=== PATIENT | male | born 1995 | race Caucasian/White ===

== ENCOUNTER 2017-10-26 21:24 | Emergency (ER) | payer OTHER ==
[2017-10-26 21:37] VITALS: BP 123/60; PULSE 103; RESP 20; TEMP 98.6; O2SAT 100
--- NOTE | 2017-10-26 22:13 | PD ---
HPI Chief Complaint: Cold / Flu Symptoms Time Seen by Provider: 22:04 Travel History International Travel<30 days: No Contact w/Intl Traveler<30days: No Traveled to known affect area: No History of Present Illness HPI Patient has had vomiting and diarrhea all day since 9 AM this morning he denies fever denies congestion or flulike symptoms but he has body aches nausea vomiting and a little bit of pain in the abdomen where he has a small defect periumbilical hernia that is known since childhood. He is nontoxic-appearing he has not been able to keep anything down he says the only thing he tried to eat were Gatorade and cheetos . Mother is bedside patient does not appear toxic has not seen another doctor for this again only tried Gatorade and Cheetos for his symptoms PFSH Past Medical History Medical History: Denies Significant Hx Diminished Hearing: No Immunizations Current: Yes (UTD) Past Surgical History Other Surgery: Yes (FRACTURED NOSE AGE 5) Social History Alcohol Use: Yes (OCCATIONALLY) Tobacco Use: No Substance Use: No Allergies-Medications (Allergen,Severity, Reaction): Coded Allergies: metoclopramide (Verified Allergy, Severe, AGITATION, 10/26/17) oseltamivir (Verified Allergy, Severe, Nausea/Vomiting, 10/26/17) Reported Meds & Prescriptions Reported Meds & Active Scripts Active Pepcid (Famotidine) 20 Mg Tab 20 Mg PO BID Zofran Odt (Ondansetron Odt) 4 Mg Tab 4 Mg SL Q6HR PRN Review of Systems Except as stated in HPI: all other systems reviewed are Neg Gastrointestinal: Positive: Nausea, Vomiting, Diarrhea, Abdominal Pain Physical Exam Narrative GENERAL: Nontoxic-appearing SKIN: Warm and dry. HEAD: Atraumatic. Normocephalic. EYES: Pupils equal and round. No scleral icterus. No injection or drainage. ENT: No nasal bleeding or discharge. Mucous membranes pink and moist. NECK: Trachea midline. No JVD. CARDIOVASCULAR: Regular rate and rhythm. RESPIRATORY: No accessory muscle use. Clear to auscultation. Breath sounds equal bilaterally. GASTROINTESTINAL: Abdomen soft, patient has a slight defect right above the umbilicus at 2:00 on the umbilicus no bowel is protruding and I do not feel a hard knot , if I push into the defect in the abdominal wall non-tender, nondistended. Hepatic and splenic margins not palpable. MUSCULOSKELETAL: Extremities without clubbing, cyanosis, or edema. No obvious deformities. NEUROLOGICAL: Awake and alert. No obvious cranial nerve deficits. Motor grossly within normal limits. Five out of 5 muscle strength in the arms and legs. Normal speech. PSYCHIATRIC: Appropriate mood and affect; insight and judgment normal. Data Data Last Documented VS Vital Signs Date Time Temp Pulse Resp B/P (MAP) Pulse Ox O2 Delivery O2 Flow Rate FiO2 10/26/17 23:44 88 16 136/68 (90) 98 10/26/17 23:01 Room Air 10/26/17 21:37 98.6 Orders Orders Complete Blood Count With Diff (10/26/17 22:10) Comprehensive Metabolic Panel (10/26/17 22:10) Lipase (10/26/17 22:10) Famotidine Inj (Pepcid Inj) (10/26/17 22:15) Ondansetron Inj (Zofran Inj) (10/26/17 22:15) Sodium Chlor 0.9% 1000 Ml Inj (Ns 1000 M (10/26/17 22:15) Labs Laboratory Tests Test 10/26/17 22:15 White Blood Count 12.4 TH/MM3 Red Blood Count 5.13 MIL/MM3 Hemoglobin 15.7 GM/DL Hematocrit 46.0 % Mean Corpuscular Volume 89.8 FL Mean Corpuscular Hemoglobin 30.6 PG Mean Corpuscular Hemoglobin Concent 34.2 % Red Cell Distribution Width 12.5 % Platelet Count 277 TH/MM3 Mean Platelet Volume 8.0 FL Neutrophils (%) (Auto) 87.9 % Lymphocytes (%) (Auto) 4.9 % Monocytes (%) (Auto) 5.5 % Eosinophils (%) (Auto) 0.2 % Basophils (%) (Auto) 1.5 % Neutrophils # (Auto) 10.9 TH/MM3 Lymphocytes # (Auto) 0.6 TH/MM3 Monocytes # (Auto) 0.7 TH/MM3 Eosinophils # (Auto) 0.0 TH/MM3 Basophils # (Auto) 0.2 TH/MM3 CBC Comment DIFF FINAL Differential Comment Blood Urea Nitrogen 17 MG/DL Creatinine 1.20 MG/DL Random Glucose 101 MG/DL Total Protein 7.8 GM/DL Albumin 4.1 GM/DL Calcium Level 8.9 MG/DL Alkaline Phosphatase 90 U/L Aspartate Amino Transf (AST/SGOT) 20 U/L Alanine Aminotransferase (ALT/SGPT) 28 U/L Total Bilirubin 1.7 MG/DL Sodium Level 136 MEQ/L Potassium Level 4.1 MEQ/L Chloride Level 102 MEQ/L Carbon Dioxide Level 26.6 MEQ/L Anion Gap 7 MEQ/L Estimat Glomerular Filtration Rate 76 ML/MIN Lipase 99 U/L MDM Medical Decision Making Medical Screen Exam Complete: Yes Emergency Medical Condition: Yes Differential Diagnosis Differential diagnosis includes gastroenteritis versus cholecystitis versus pancreatitis versus viral gastroenteritis Narrative Course Fluids Zofran Pepcid patient feels much better I do a bedside [id number] ultrasound that shows no signs of gallstones no signs of common bile duct dilation no signs of wall thickening and there is no pericholecystic fluid liter fluid patient feels much better discharged home with Zofran Pepcid p.o. and follow with outpatient Procedures Procedure Narrative POC bedside U/s no GB disease no stones no pericholic fluid CBD normal Diagnosis Primary Impression: Gastroenteritis and colitis, viral Patient Instructions: Gastroenteritis (ED), General Instructions Scripts Famotidine (Pepcid) 20 Mg Tab 20 MG PO BID, #20 TAB 0 Refills Prov: Abel Brandon MD 10/26/17 Ondansetron Odt (Zofran Odt) 4 Mg Tab 4 MG SL Q6HR Y for Nausea/Vomiting, #15 TAB 0 Refills Prov: Abel Brandon MD 10/26/17 Disposition: 01 DISCHARGE HOME Condition: Good Abel Brandon MD Oct 26, 2017 22:13
[2017-10-26] MEDS ORDERED: ONDANSETRON HCL 4 MG/2 ML VIAL IV PUSH ONE (22:15)
[2017-10-26] MEDS ORDERED: SODIUM CHLOR 0.9% 1000 ML INJ 1,000 ML IV ONE (22:15)
[2017-10-26] MEDS ORDERED: FAMOTIDINE 20 MG/2 ML VIAL IV PUSH SCH (22:15)
[2017-10-26 22:36] LABS: AUTOMATED NEUTROPHIL # 10.9 TH/MM3 (1.8-7.7); BASOPHIL # 0.2 TH/MM3 (0-0.2); BASOPHIL % 1.5 % (0.0-2.0); CHLORIDE 102 MEQ/L (98-107); EOSINOPHIL % 0.2 % (0.0-4.0); HEMOGLOBIN 15.7 GM/DL (13.0-17.0); LYMPH % 4.9 % (9.0-44.0); LYMPHOCYTE # 0.6 TH/MM3 (1.0-4.8); MEAN CELL VOLUME 89.8 FL (80.0-100.0); MEAN CORPUSCULAR HEMOGLOBIN 30.6 PG (27.0-34.0); MEAN CORPUSCULAR HGB CONC 34.2 % (32.0-36.0); MONO % 5.5 % (0.0-8.0); MONOCYTE # 0.7 TH/MM3 (0-0.9); NEUT % 87.9 % (16.0-70.0); PLATELET COUNT 277 TH/MM3 (150-450); RED BLOOD COUNT 5.13 MIL/MM3 (4.50-5.90); RED CELL DISTRIBUTION WIDTH 12.5 % (11.6-17.2); SODIUM (NA) 136 MEQ/L (136-145); WHITE BLOOD COUNT 12.4 TH/MM3 (4.0-11.0)
[2017-10-26 22:39] LABS: CALCIUM 8.9 MG/DL (8.5-10.1)
[2017-10-26 22:40] LABS: ALBUMIN 4.1 GM/DL (3.4-5.0); BICARBONATE 26.6 MEQ/L (21.0-32.0); BLOOD UREA NITROGEN 17 MG/DL (7-18); GLUCOSE,RANDOM 101 MG/DL (74-106)
[2017-10-26 22:43] LABS: ALT (GPT) 28 U/L (12-78); AST (GOT) 20 U/L (15-37); GLOMERULAR FILTRATION RATE 76 ML/MIN (>89)
[2017-10-26 22:44] LABS: TOTAL BILIRUBIN ADULT 1.7 MG/DL (0.2-1.0); TOTAL PROTEIN 7.8 GM/DL (6.4-8.2)
[2017-10-26 22:46] LABS: ALKALINE PHOSPHATASE 90 U/L (45-117)
[2017-10-26 23:01] VITALS: BP 147/43; PULSE 90; RESP 16; O2SAT 100
[2017-10-26] MEDS ORDERED: ZOFR4TAB3 SL (23:22)
[2017-10-26] MEDS ORDERED: FAMO1TAB37 PO (23:22)
[2017-10-26 23:44] VITALS: BP 136/68
== END 2017-10-26 23:46 | disposition home or self-care (01) ==
LOC: PHEFT 21:24 → PHED 23:46
DX: K52.9 Noninfective gastroenteritis and colitis, unspecified (principal); A08.4 Viral intestinal infection, unspecified
CPT/HCPCS: 80053; 83690; 85025; 96361; 96374; 96375; 99284; J2405; J7030